=== PATIENT | male | born 1965 | race Caucasian/White ===

== ENCOUNTER 2023-10-22 08:30 | Outpatient (RCR) | payer OTHER | END 2023-10-23 | disposition home or self-care (01) | LOC: MKS.ESL.PT | DX: Z98.890 Other specified postprocedural states (principal) ==

== ENCOUNTER 2023-11-17 08:00 | Outpatient (RCR) | payer OTHER | END 2023-11-22 | disposition home or self-care (01) | LOC: MKS.ESL.PT | DX: Z98.890 Other specified postprocedural states (principal) ==